=== PATIENT | female | born 1965 | race Caucasian/White ===

== ENCOUNTER 2020-11-24 09:11 | Outpatient (CLI) | payer BC, SELFPAY ==
--- NOTE | 2020-11-24 09:21 | MR_ITS ---
WS: [id number] MRI CERVICAL SPINE NONCONTRAST TECHNIQUE: Sagittal T1, T2 and STIR imaging. Axial T2, gradient, and fiesta imaging. CLINICAL INFORMATION: CERVICAL RADICULOPATHY COMPARISON: None. FINDINGS: Straightening of the normal cervical lordosis. Shallow disc osteophyte complex at C5-C6 and C6-C7. No high-grade central canal stenosis. Cord signal is normal. C2-C3: Normal. C3-C4: Mild right and no significant left foraminal narrowing. Moderate right facet arthropathy. Spin al canal is patent. C4-C5: Mild disc bulging with endplate ridging. Mild left and no significant right foraminal narrowin g. Spinal canal is patent. Mild facet arthropathy. C5-C6: Disc osteophyte complexes with endplate ridging. Mild central canal stenosis. Moderate left an d mild right bony foraminal narrowing. Mild facet arthropathy. C6-C7: Disc osteophyte complex with endplate ridging eccentric to the left. Moderate to severe left b beka foraminal narrowing. Mild central canal stenosis. C7-T1: Normal. Visualized brain stem structures: Normal. Prevertebral soft tissues: Normal. MR/MR cervical spin wo con* [id number] IMPRESSION: 1. Straightening of the normal cervical lordosis. Cord signal is normal. 2. Shallow disc osteophyte complexes C5-C6 and C6-C7 with mild central canal s tenosis. 3. Moderate to severe left C6-C7 bony foraminal narrowing. 4. Moderate left C5-C6 bony foraminal narrowing. 5. Asymmetric moderate facet arthropathy right C3-C4 6. T2 hyperintense right thyroid nodule measuring 1.4 x 1.1 cm. This can be fo llowed up with ultrasound.
--- NOTE | 2020-11-24 09:27 | MR_ITS ---
WS: [id number] MRI LUMBAR SPINE NONCONTRAST TECHNIQUE: Sagittal T1, T2 and STIR imaging. Axial T1 and T2 imaging. CLINICAL INFORMATION: TETHERED CORD COMPARISON: None. FINDINGS: Normal lumbar alignment. No acute compression. Mild disc bulging L4-5 with endplate degenerative guajardo ges. Normal conus at the L1 level. L1-L2: Normal. L2-L3: Mild facet arthropathy. Spinal canal and foramen are patent. L3-L4: Minimal annular bulging. Mild facet arthropathy. Spinal canal and foramen are patent. L4-L5: Mild annular bulging eccentric to the right with impingement on the traversing right L5 nerve root. Mild right foraminal narrowing. Left foramen is patent. Mild facet arthropathy. . L5-S1: No significant disc bulging. Mild to moderate facet arthropathy. 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 This has a chronic long-standing ap pearance with bony remodeling. MR/MR lumbar spine wo con* [id number] IMPRESSION: 1. Mild lumbar curve. No acute compression. No high-grade central canal stenos is. 2. Disc desiccation worse L4-5 with disc osteophytic ridging and impingement o n the traversing right L5 nerve root. Mild right foraminal narrowing at this le wallace. 3. Moderate facet arthropathy L5-S1. 4. Lobulated Tarlov cyst in the sacrum.
== END 2020-11-24 09:12 | disposition home or self-care (01) ==
PROVIDERS: PCP Physician Assistant Medical; Visit Provider Neurological Surgery
DX: Q06.8 Other specified congenital malformations of spinal cord (principal); M54.12 Radiculopathy, cervical region; M25.78 Osteophyte, vertebrae; M47.812 Spondylosis without myelopathy or radiculopathy, cervical region; E04.1 Nontoxic single thyroid nodule; G96.191 Perineural cyst; M47.817 Spondylosis without myelopathy or radiculopathy, lumbosacral region
CPT/HCPCS: 72141; 72148